=== PATIENT | female | born 1985 | race Caucasian/White ===

== ENCOUNTER 2020-11-23 17:46 | Emergency (ER) | payer SELFPAY ==
[2020-11-23] MEDS ORDERED: Ketorolac Tromethamine 60 MG/2 ML VIAL ONE (18:05)
== END 2020-11-23 18:12 | disposition home or self-care (01) ==
LOC: BURERS 17:46
DX: M54.12 Radiculopathy, cervical region (principal)
CPT/HCPCS: 96372; 99283; J1885

== ENCOUNTER 2022-06-10 07:34 | Emergency (ER) | payer SELFPAY ==
[2022-06-10] MEDS ORDERED: Lidocaine 2% w/Epinephrine 1:200K 20 ML VIAL ONE (07:49)
[2022-06-10] MEDS ORDERED: Boostrix 0.5 ML (Tdap) VIAL (>/=7 yrs of age) ONE (08:31)
== END 2022-06-10 08:33 | disposition home or self-care (01) ==
LOC: BURERS 07:34
DX: L02.212 Cutaneous abscess of back [any part, except buttock and flank] (principal); F17.210 Nicotine dependence, cigarettes, uncomplicated
CPT/HCPCS: 10060; 87070; 87205; 90715

== ENCOUNTER 2022-06-11 08:59 | Emergency (ER) | payer SELFPAY | END 2022-06-11 09:38 | disposition home or self-care (01) | LOC: BURERS 08:59 | DX: T81.49XA Infection following a procedure, other surgical site, initial encounter (principal); F17.210 Nicotine dependence, cigarettes, uncomplicated | CPT/HCPCS: 99283 ==

== ENCOUNTER 2023-04-19 23:13 | Emergency (ER) | payer SELFPAY | END 2023-04-20 02:03 | disposition home or self-care (01) | LOC: BURERS 23:13 | DX: S83.92XA Sprain of unspecified site of left knee, initial encounter (principal); G89.29 Other chronic pain; F17.210 Nicotine dependence, cigarettes, uncomplicated; X50.1XXA Overexertion from prolonged static or awkward postures, initial encounter ==